=== PATIENT | female | born 1950 | race Caucasian/White ===

== ENCOUNTER 2023-01-17 12:24 | Inpatient (IN) | payer MEDICARE, SELFPAY ==
[2023-01-17] VITALS (8 sets, daily range): BP systolic 135–151; BP diastolic 54–76; PULSE 57–70; RESP 12–20; TEMP 36.3–37; O2SAT 93–100; BMI 28.3
--- NOTE | ~2023-01-17 | CT_ITS ---
EXAMINATION: CT facial bones wo con DATE: 01/17/2023 14:22 INDICATION: Facial injury from fall TECHNIQUE: Computed tomography (CT) of the facial bones and maxillofacial region was performed withou t intravenous contrast. Automated exposure control and iterative reconstruction technique were employ ed. Exam dose: 386.04 mGy-cm total exam DLP. COMPARISON: None. FINDINGS: The frontozygomatic sutures are intact. The orbital rims and maynard, zygomatic arches and ma xillary bones are intact. There is prominent mucoperiosteal thickening of the right maxillary sinus. The paranasal sinuses and mastoid air cells are otherwise unremarkable. There is degenerative disc disease of moderate degree at C4-5 and severe degree at C5-6 and C6-7. The re is degenerative change at the apophyseal joints throughout the cervical spine and uncovertebral luc ints of the mid and particularly lower cervical spine. IMPRESSION: No facial fracture Cervical spondylosis Mucoperiosteal thickening of right maxillary sinus Reviewed, dictated and finalized at [facility]. Reviewed, dictated and finalized at location [facility].
--- NOTE | ~2023-01-17 | XR_ITS ---
XR hip RT min 2V DATE: 01/18/2023 20:31 INDICATION: Bipolar hip replacement TECHNIQUE: Postoperative AP and crosstable lateral views of right hip COMPARISON: January 17, 2023 right hip FINDINGS: There is resection of the right femoral head and neck and placement of bipolar hip prosthes is which is normally seated in the right acetabular fossa. IMPRESSION: Right bipolar hip replacement Reviewed, dictated and finalized at location [facility].
--- NOTE | ~2023-01-17 | XR_ITS ---
EXAMINATION: XR chest 1V INDICATION: Pain after fall TECHNIQUE: AP view of the chest is obtained. COMPARISON: 09/18/2016 FINDINGS: The lungs are free of acute opacities. No pleural effusion or pneumothorax. The cardiomedia stinal silhouette is normal. Biopsy markers are noted in the left breast. IMPRESSION: 1. No acute cardiopulmonary abnormality. Reviewed, dictated and finalized at location [facility].
--- NOTE | ~2023-01-17 | XR_ITS ---
EXAMINATION: XR hip RT 2V w AP pelvis INDICATION: Right hip pain after fall. TECHNIQUE: AP view the pelvis and two views of the right hip are obtained. COMPARISON: None available FINDINGS: There is an acute, traumatic, closed, subcapital fracture of the right femoral neck. No add itional fracture is identified. The soft tissues are unremarkable. IMPRESSION: 1. Acute subcapital right femoral neck fracture. Reviewed, dictated and finalized at location [facility].
--- NOTE | ~2023-01-17 | CT_ITS ---
EXAMINATION: CT brain wo con DATE: 01/17/2023 14:21 INDICATION: Head and facial injuries TECHNIQUE: Computed tomography (CT) of the head was performed without intravenous contrast. The mA wa s adjusted according to patient size. Iterative reconstruction technique was employed. Exam dose: 68 1.00 mGy-cm total exam DLP. COMPARISON: None FINDINGS: Vertebral, basilar and carotid siphon internal carotid artery calcifications are noted. The re is nonspecific diminished attenuation of the cerebral white matter, likely due to chronic small ve ssel ischemic changes. There is a small focal area of encephalomalacia in the medial aspect of the right frontal lobe likely due to small old infarct. No intracranial mass lesion or hemorrhage, midline shift or mass effect is detected. No subdural or e pidural hematoma is detected. There is moderately prominent mucoperiosteal thickening of the right maxillary sinus. The paranasal s inuses and mastoid air cells are otherwise unremarkable. No skull fracture or bone destruction is detected. 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 Reviewed, dictated and finalized at location [facility]. 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
[2023-01-17] MEDS: fentaNYL CITRATE INJ (*CRX) 100 MCG/2 ML VIAL 50 MCG IV PUSH (12:58)
[2023-01-17 13:25] LABS: Basophils Percent Auto 0.2 % (0.2-1.2); Eosinophils Absolute Auto 0.1 K/mm3 (0-0.3); Eosinophils Percent Auto 0.4 % (0-4.4); Hematocrit 41.5 % (37.0-47.0); Hemoglobin 13.1 g/dL (12.0-15.0); Immature Granulocyte Absolute 0.12 K/mm3 (0.00-0.031); Immature Granulocyte Percent A 0.9 % (0-0.5); Lymphocytes Absolute Auto 1.53 K/mm3 (0.9-3.2); Lymphocytes Percent Auto 11.8 % (18.3-44.2); Mean Corpuscular HGB Conc 31.6 g/dl (32-36); Mean Corpuscular Hemoglobin 30.9 pg (26-34); Mean Corpuscular Volume 97.9 fl (80-100); Mean Platelet Volume 9.9 fl (7.4-10.4); Monocytes Absolute Auto 0.7 K/mm3 (0.1-0.6); Monocytes Percent Auto 5.1 % (2.6-8.5); Neutrophils Absolute Auto 10.6 K/mm3 (1.3-6.7); Neutrophils Percent Auto 81.6 % (45.5-73.1); Platelet Count Result 208 k/mm3 (150-375); Red Blood Count 4.24 M/mm3 (4.2-5.4); Red Cell Distribution Width 13.6 % (11.5-14.5)
[2023-01-17 13:32] LABS: Alanine Aminotransferase 24 U/L (6-35); Albumin Level 4.5 g/dL (3.5-5.1); Alkaline Phosphatase 70 U/L (38-126); Anion Gap 7 mmol/L (8-16); Aspartate Amino Transferase 29 U/L (14-36); Bilirubin,Total 0.7 mg/dL (0.2-1.3); Blood Urea Nitrogen 22 mg/dL (7-17); Calcium 9.1 mg/dL (8.4-10.2); Carbon Dioxide 25 mmol/L (22-30); Chloride 105 mmol/L (98-107); Estimated CRCL calculation 64 ml/min; Estimated Glomerular Filt Rate > 60; Glucose 116 mg/dL (65-110); Potassium 4.2 mmol/L (3.4-5.0); Sodium 137 mmol/L (137-145)
[2023-01-17 13:40] LABS: Partial Thromboplastin Time 23.9 SECONDS (22.3-36.8)
--- NOTE | 2023-01-17 13:57 | ED.GENADULT ---
HPI - General Adult General Chief complaint: Fall Stated complaint: Fall Time Seen by Provider: 01/17/23 12:33 History of Present Illness HPI narrative: 72-year-old female presented to the emergency department for evaluation of right hip pain after having a ground-level fall. Patient states that she slipped in the kitchen, causing her to fall forward and landing on her face and abdomen. Patient denies loss consciousness. Patient states her was able to assist her to sitting but after sitting she realized that she had very significant right hip pain. Patient called EMS for the pain. Upon arrival by EMS patient's right leg was shortened and externally rotated. Related Data Home Medications Medication Instructions Recorded Confirmed amlodipine 2.5 mg tablet 2.5 mg PO DAILY 01/17/23 01/17/23 lovastatin 20 mg tablet 20 mg PO HS 01/17/23 01/17/23 metoprolol tartrate 25 mg tablet 25 mg PO BID 01/17/23 01/17/23 Allergies Allergy/AdvReac Type Severity Reaction Status Date / Time Sulfa (Sulfonamide Allergy Unknown Verified 06/25/18 08:21 Antibiotics) Review of Systems Review of Systems: All systems reviewed & are unremarkable except as noted in HPI and below PMFSH Past Medical History Medical History (Updated 01/17/23 @ 19:02 by Clemente Solis MD) Cancer of left breast Dyslipidemia Hypertension Surgical History Surgical History (Updated 01/17/23 @ 15:24 by Sherly Garcia PA-C) History of lumpectomy of left breast Family History Family History (Updated 01/17/23 @ 17:09 by Jackeline Collins RN) Mother Congestive heart failure (CHF) Hypertension Osteoporosis Anemia Father Arthritis Pacemaker Anemia Sibling Pacemaker Arthritis Social History Social History (Updated 01/17/23 @ 15:25 by Sherly Garcia PA-C) Social History: Surrogate medical decision maker: Code status: Full code. Smoking packs per day: 0.20 Smoking cigarettes per day: 4.0 Years smoked: 8 Smoking pack-years: 1.60 Smoking status: Former smoker Alcohol intake: never Substance use: never Substance use type: does not use Lack of Transportation: No Lack of Food: Never True Current Housing: I Have Housing Concerned About Future Housing: No Difficulty Paying Gas/Electric Bills: No Difficulty Paying for Meds: No Currently Unemployed: No Education: High School Diploma/GED Difficulty w/ Childcare or Family Care: No Spiritual care concerns: No Exam Narrative: APPEARANCE: Well appearing, no pain, no distress, well-nourished. HEAD: normocephalic, atraumatic. EYES: PERRLA/EOMI, conjunctivae clear. NOSE: Normal no drainage NECK: Supple. No adenopathy, no masses. RESPIRATORY: Airway patent, respirations nonlabored. Clear to auscultation bilaterally, no rales, rhonchi, wheezing. CARDIOVASCULAR: Regular rate and rhythm without murmurs rubs or gallops. ABDOMINAL: Soft, nontender, nondistended, normal bowel sounds MUSCULOSKELETAL: Moves all extremities. Right leg is neurovascular intact but is shortened externally rotated. NEURO: Alert. Cranial nerves II through XII intact. SKIN: Warm, dry. Normal Color Course Course Emergency Course: 32-year-old female presenting to the ED for evaluation after having a ground-level fall striking her face and having right hip pain. Head and facial CT were negative for acute abnormality. Hip x-ray showed positive fracture. Patient's pain was improved with IV pain medications including 0.5 mg of Dilaudid. Case was discussed with orthopedics and they will see the patient as consult. Case discussed with hospitalist and patient was accepted for admission. Patient and family were updated on the results of the work-up and imaging and anticipated admission and treatment plan. Vital Signs Vital signs: Vital Signs Temperature 98.2 F 01/17/23 12:20 Pulse Rate 59 L 01/17/23 12:20 Respiratory Rate 15 01/17/23 12:20 Blood Pres
--- NOTE | 2023-01-17 15:20 | PM.IMHP ---
H&P: HPI History of Present Illness Date/Time: 01/17/23 15:20 Chief Complaint: Right hip pain after fall. Narrative: This is a 72-year-old female with hypertension and dyslipidemia who presented to the emergency department for evaluation of right hip pain after fall. Patient provides the following history. On her way to the kitchen she reports that the rubber soles of her shoes got tripped up on the floor, causing her to fall forward. She denies antecedent symptoms prior to the fall and states it was purely mechanical. She did not think that she had any head trauma however her glasses did cause a small abrasion on the right eyebrow which bled for a period of time. With the help of her she was able to get up to the couch and when she sat down she had immediate sharp, shooting pain in the right hip. He called 911 as she was unable to move and radiographs of that right hip revealed an acute subcapital right femoral neck fracture. She is being admitted in this setting for surgical repair tomorrow. At the time my evaluation she rates her pain 7.5/10 pain situated in the anterolateral hip, radiating somewhat down the leg. She denies loss of consciousness in the fall and did not sustain any other injuries. She denies paresthesias, skin color, and temperature changes distal to the fracture site. Review of Systems Review of Systems: Twelve systems were reviewed. She has frequent sinus issues and allergies this time of year. No acute symptoms. No syncope or presyncope. She has not had exertional chest pain or shortness of breath. No orthopnea, paroxysmal nocturnal dyspnea, or lower extremity edema. Appetite has been good. No nausea, vomiting, or diarrhea. No dysuria. No history of venous thromboembolism. Except as documented, all other systems were reviewed and are negative. [facility] Past Medical History Medical History (Updated 01/17/23 @ 20:53 by Sherly Garcia PA-C) Cancer of left breast Status post lumpectomy and chemoradiation. Dyslipidemia Hypertension Hypothyroidism Osteoporosis Surgical History Surgical History History of lumpectomy of left breast Family History Family History (Updated 01/17/23 @ 17:09 by Jackeline Collins RN) Mother Congestive heart failure (CHF) Hypertension Osteoporosis Anemia Father Arthritis Pacemaker Anemia Sibling Pacemaker Arthritis Social History Social History (Updated 01/17/23 @ 20:54 by Sherly Garcia PA-C) Social History: Surrogate medical decision maker: Rito Falcon, spouse. Code status: Full code. Smoking packs per day: 0.20 Smoking cigarettes per day: 4.0 Years smoked: 8 Smoking pack-years: 1.60 Smoking status: Former smoker Alcohol intake: never Substance use: never Substance use type: does not use Lack of Transportation: No Lack of Food: Never True Current Housing: I Have Housing Concerned About Future Housing: No Difficulty Paying Gas/Electric Bills: No Difficulty Paying for Meds: No Currently Unemployed: No Education: High School Diploma/GED Difficulty w/ Childcare or Family Care: No Additional living arrangements comments: Lives with in [place]. Spiritual care concerns: No Meds Home Medications and Allergies Home Medications Medication Instructions Recorded Confirmed Type amlodipine 2.5 mg tablet 2.5 mg PO DAILY 01/17/23 01/17/23 History lovastatin 20 mg tablet 20 mg PO HS 01/17/23 01/17/23 History metoprolol tartrate 25 mg tablet 25 mg PO BID 01/17/23 01/17/23 History Allergies Allergy/AdvReac Type Severity Reaction Status Date / Time Sulfa (Sulfonamide Allergy Unknown Verified 06/25/18 08:21 Antibiotics) Vital Signs Vital Signs - 24 hr 01/17/23 12:20 Temperature 98.2 F Pulse Rate 59 L Respiratory Rate 15 Blood Pressure 148/76 H Pulse Oximetry 97 Oxygen Delivery Room Air Exam Narrative: Gen
[2023-01-17] MEDS: HYDROmorphone HCL INJ (*CRX) 1 MG/ML SYR 0.5 MG IV PUSH ×2 (15:46→21:36)
[2023-01-17 15:55] LABS: Appearance Urine Clear (Clear); Bacteria Urine None Seen /hpf; Bilirubin Urine Negative (Negative); Blood Urine Trace (Negative); Color Urine Yellow (Yellow); Glucose Urine UA Negative (Negative); Ketones Urine Trace mg/dL (Negative); Leukocyte Esterase Ur Negative LEU/UL (Negative); Nitrate Urine Negative (Negative); Non Pathogenic Casts 0-2; Protein Urine Negative (Negative); RBC Urine 0-2 /hpf (0-2); Specific Grav Ur 1.021 (1.001-1.035); Squamous Epithelial Cell Urine None seen /hpf (Few); Urobilinogen Urine 0.2 mg/dL (<2.0); WBC Urine 0-5 /hpf; pH Urine 5.5 (5.0-9.0)
[2023-01-17 15:58] LABS: Add Urine Microscopic? YES
--- NOTE | 2023-01-17 16:54 | ADMGEN ---
This patient, Mirna Falcon, was admitted to [facility] Surg Room 303- on 01/17/23 1620. Patient/family oriented to hospital policies and general routines including ID bracelet, bed and alarms, visiting hours, pain management, procedures, bathroom and other care routines, personal items, smoking policy, room service/diet, and visiting hours. Information on how to activate the Rapid Response Team has been discussed. Patient/Family are encouraged to report perceived risks to care and to ask questions if they do not understand what they are told or what they should do.
--- NOTE | 2023-01-17 20:45 | PC.NURSE ---
Patient having increased pain, anxiety and needing home BP meds restarted. DENISE Dubois notified and awaiting further orders.
[2023-01-17] MEDS: ONDANSETRON INJ 4 MG/2 ML VIAL IV PUSH (21:36)
[2023-01-17] MEDS: LOVASTATIN 20 MG TABLET PO (22:03)
[2023-01-17] MEDS: METOPROLOL TARTRATE 25 MG TABLET PO (22:04)
[2023-01-18] VITALS (11 sets, daily range): BP systolic 120–148; BP diastolic 45–71; PULSE 64–80; RESP 12–20; TEMP 36.3–37.6; O2SAT 88–100
[2023-01-18] MEDS: ONDANSETRON INJ 4 MG/2 ML VIAL IV PUSH ×2 (01:34→06:19)
[2023-01-18] MEDS: HYDROmorphone HCL INJ (*CRX) 1 MG/ML SYR 0.5 MG IV PUSH ×4 (01:34→14:55)
--- NOTE | 2023-01-18 07:29 | PM.CNOR ---
Assessment and Plan Assessment and plan (1) Closed subcapital fracture of neck of right femur: Code(s): S72.011A - Unspecified intracapsular fracture of right femur, initial encounter for closed fracture Status: Acute Plan 72-year-old female with a right subcapital femoral neck fracture. I discussed the injury with the patient and her . Plan on bipolar right hip replacement later today. Risks and potential complications were discussed in detail and questions answered. Thank you for the consultation. History of Present Illness HPI Consult date: 01/18/23 Consult reason: fracture Chief complaint: Right Hip Fracture Narrative: This document created with [id number] technology and is subject to hemming and tacking machine operator irregularities. 72-year-old community ambulator who tripped in her kitchen at home yesterday suffering a displaced right femoral neck fracture. No other injuries with this occurrence. Review of Systems Constitutional: Constitutional: Reports no additional constitutional complaints, Denies excessive sweating and Denies fatigue Eyes: Eyes: Reports no additional eye complaints ENT: Reports system reviewed and no additional complaints, except as documented Cardiovascular: Cardiovascular: Denies chest pain at rest and Denies dyspnea Respiratory: Respiratory: Reports no additional respiratory complaints and Denies dyspnea Gastrointestinal: Gastrointestinal: Reports no additional gastrointestinal complaints Musculoskeletal: Musculoskeletal: Reports as per HPI Integumentary/Breasts: Skin/Breast: Reports system reviewed and no additional complaints, except as docu Comments: History of breast cancer treated six years ago. Currently considered cancer free Neurologic: Reports as per HPI Endocrine: Endocrine: Denies excessive sweating and Denies fatigue Hematologic/Lymphatic: Hematologic/Lymphatic: Denies easy bleeding and Denies easy bruising PMFSH Past Medical History Medical History Cancer of left breast Status post lumpectomy and chemoradiation. Dyslipidemia Hypertension Hypothyroidism Osteoporosis Surgical History Surgical History History of lumpectomy of left breast Family History Family History Mother Congestive heart failure (CHF) Hypertension Osteoporosis Anemia Father Arthritis Pacemaker Anemia Sibling Pacemaker Arthritis Social History Social History Social History: Surrogate medical decision maker: Rito Falcon, spouse. Code status: Full code. Smoking packs per day: 0.20 Smoking cigarettes per day: 4.0 Years smoked: 8 Smoking pack-years: 1.60 Smoking status: Former smoker Alcohol intake: never Substance use: never Substance use type: does not use Lack of Transportation: No Lack of Food: Never True Current Housing: I Have Housing Concerned About Future Housing: No Difficulty Paying Gas/Electric Bills: No Difficulty Paying for Meds: No Currently Unemployed: No Education: High School Diploma/GED Difficulty w/ Childcare or Family Care: No Additional living arrangements comments: Lives with in [place]. Spiritual care concerns: No Meds Home Medications and Allergies Home Medications Medication Instructions Recorded Confirmed Type amlodipine 2.5 mg tablet 2.5 mg PO DAILY 01/17/23 01/17/23 History lovastatin 20 mg tablet 20 mg PO HS 01/17/23 01/17/23 History metoprolol tartrate 25 mg tablet 25 mg PO BID 01/17/23 01/17/23 History Allergies Allergy/AdvReac Type Severity Reaction Status Date / Time Sulfa (Sulfonamide Allergy Unknown Verified 06/25/18 08:21 Antibiotics) Vital Signs Vital Signs - 24 hr 01/17/23 12:20 01/17/23 12:29 01/17/23 12:31 Temperature 98.2 F Pulse
--- NOTE | 2023-01-18 11:47 | PM.IMPN ---
Progress Note: A&P Assessment and Plan (1) Closed subcapital fracture of neck of right femur: Code(s): S72.011A - Unspecified intracapsular fracture of right femur, initial encounter for closed fracture Status: Acute Assessment and Plan: Surgery planned for today (2) Fall from ground level: Code(s): W18.30XA - Fall on same level, unspecified, initial encounter Status: Acute (3) Hypertension: Code(s): I10 - Essential (primary) hypertension Status: Acute (4) Dyslipidemia: Code(s): E78.5 - Hyperlipidemia, unspecified Status: Acute Plan Subjective Date/time seen: 01/18/23 11:47 No new complaints Exam Narrative: General: Well-developed female supine in bed in moderate pain. Weight: 79.6 kg. BMI: 28.3. HEENT: Wearing corrective lenses. There is a subcentimeter, superficial abrasion on the right lateral eyebrow. PERRL, EOMI. Sclera anicteric. Oral mucosa moist. Oropharynx clear. Neck: Supple. No JVD. Respiratory: Lungs are clear to auscultation bilaterally. Cardiovascular: Regular rate and rhythm with S1-S2. Gastrointestinal: Abdomen is soft, nontender, and nondistended with positive bowel sounds. Skin: Warm and dry. No rash or lesions on limited exam. Extremities: No cyanosis, clubbing, or edema. Radial and pedal pulses intact. Musculoskeletal: Right leg is shortened and externally rotated. She is neurovascularly intact distal to the fracture site. Neurological: Alert. Cranial nerves 2-12 are grossly intact. No gross focal deficits to casual conversation. Psychiatric: Pleasant and cooperative with normal mood and affect. Judgment and insight intact. Objective Data Vital Signs Vital Signs: Vital Signs - 24 hr 01/17/23 12:20 01/17/23 12:29 01/17/23 12:31 Temperature 98.2 F Pulse Rate 59 L 59 L Respiratory Rate 15 18 14 Blood Pressure 148/76 H 148/76 H 149/67 H Pulse Oximetry 97 94 93 Oxygen Delivery Room Air 01/17/23 12:46 01/17/23 13:15 01/17/23 15:51 Temperature Pulse Rate 57 L 60 66 Respiratory Rate 20 18 18 Blood Pressure 151/69 H 147/68 H 135/55 L Pulse Oximetry 96 100 100 Oxygen Delivery 01/17/23 16:20 01/17/23 21:23 01/18/23 05:41 Temperature 98.6 F 97.3 F L 97.6 F Pulse Rate 67 70 69 Respiratory Rate 12 16 16 Blood Pressure 135/54 L 137/64 133/59 L Pulse Oximetry 97 94 93 Oxygen Delivery 01/18/23 08:00 Temperature Pulse Rate Respiratory Rate Blood Pressure Pulse Oximetry Oxygen Delivery Room Air Intake/Output Intake/Output: Intake & Output 01/15/23 01/16/23 01/17/23 01/18/23 23:59 23:59 23:59 23:59 Intake Total 480 Output Total 500 Balance 480 -500 Meds/Results Medications: Active Medications Generic Name Dose Route Start Last Admin Trade Name Freq PRN Reason Stop Dose Admin Amlodipine Besylate 2.5 mg 01/18/23 09:00 Amlodipine Besylate 2.5 Mg Tablet PO DAILY ALBERTO Sodium Chloride 38.7 ml/ 0 ml 01/18/23 12:00 Morphine Sulfate 2 mg/ INFILTRATE 01/18/23 12:01 Ropivacaine 200 mg/ ONCE ONE Epinephrine HCl 0.3 mg Hydromorphone HCl 0.5 mg 01/17/23 21:21 01/18/23 09:26 Hydromorphone Hcl Inj (*Crx) 1 Mg/Ml Syr IV PUSH 0.5 mg Q3H PRN Administration Pain Rated 7-10 Lovastatin 20 mg 01/17/23 21:35 01/17/23 22:03 Lovastatin 20 Mg Tablet PO 20 mg HS ALBERTO Administration Metoprolol Tartrate 25 mg 01/17/23 21:35 01/18/23 09:39 Metoprolol Tartrate 25 Mg Tablet PO Not Given BID S
[2023-01-18] MEDS: amLODIPine BESYLATE 2.5 MG TABLET PO (12:43)
[2023-01-18] MEDS: METOPROLOL TARTRATE 25 MG TABLET PO (12:43)
--- NOTE | 2023-01-18 16:48 | WPDHPUPDATE1 ---
History and Physical Update Update Date/Time: 01/18/23 16:48 History and Physical has been reviewed, including an updated exam of the patient. There are NO changes in the patient's condition. Risks, benefits, and alternatives have been discussed and questions answered. Patient agrees to proceed with procedure.
--- NOTE | 2023-01-18 16:49 | WPDANESEPPF ---
Anes - Initial Pre Proc Eval Procedure: Operation Date: 01/18/23 17:30 Proposed Procedures p Right Bipolar Hip Replacement - John Velasquez MD Date/Time: 01/18/23 16:49 Surgeon: Elmo Holman MD Pre Op Diagnosis: Right Hip Fracture Patient Data Age: 72 Gender: F Height: 1.68 m Weight: 79.6 kg Last Vital Signs Temp 36.5 C 01/18/23 14:00 Pulse 65 01/18/23 14:00 Resp 20 01/18/23 14:00 BP 141/61 H 01/18/23 14:00 Pulse Ox 97 01/18/23 14:00 O2 Del Method Room Air 01/18/23 08:00 Allergies Allergy/AdvReac Type Severity Reaction Status Date / Time Sulfa (Sulfonamide Allergy Unknown Verified 06/25/18 08:21 Antibiotics) Home Medications Medication Instructions Recorded Confirmed Type amlodipine 2.5 mg tablet 2.5 mg PO DAILY 01/17/23 01/17/23 History lovastatin 20 mg tablet 20 mg PO HS 01/17/23 01/17/23 History metoprolol tartrate 25 mg tablet 25 mg PO BID 01/17/23 01/17/23 History Patient hx anesthesia problems: none Family hx anesthesia problems: none Results Review: All pre-operative results and documents have been reviewed as part of the pre-operative evaluation. [facility] Past Medical History Medical History (Updated 01/18/23 @ 16:49 by Torres Mena MD) Cancer of left breast Status post lumpectomy and chemoradiation. Dyslipidemia Hypertension Hypothyroidism Osteoporosis Thyroid adenoma Surgical History Surgical History History of lumpectomy of left breast Family History Family History Mother Congestive heart failure (CHF) Hypertension Osteoporosis Anemia Father Arthritis Pacemaker Anemia Sibling Pacemaker Arthritis Social History Social History Social History: Surrogate medical decision maker: Rito Falcon, spouse. Code status: Full code. Smoking packs per day: 0.20 Smoking cigarettes per day: 4.0 Years smoked: 8 Smoking pack-years: 1.60 Smoking status: Former smoker Alcohol intake: never Substance use: never Substance use type: does not use Lack of Transportation: No Lack of Food: Never True Current Housing: I Have Housing Concerned About Future Housing: No Difficulty Paying Gas/Electric Bills: No Difficulty Paying for Meds: No Currently Unemployed: No Education: High School Diploma/GED Difficulty w/ Childcare or Family Care: No Additional living arrangements comments: Lives with in [place]. Spiritual care concerns: No Anes - Eval Final PreProcedure Day of Procedure 01/18/23 16:49 Patient weight: overweight Heart: regular rate and rhythm Lungs: clear to auscultation Airway: Mallampati scale class II Neurological: alert and oriented Last oral intake: >/= 8 hours ASA classification: III Emergent: no Anesthetic plan: proceed Anesthesia type and monitoring: general ETT and standard monitoring Results Review: All pre-operative results and documents have been reviewed as part of the pre-operative evaluation. Informed Consent: The patient's anesthetic plan and its attendant risks and benefits were discussed with the patient/family/POA. Questions were solicited and answers provided to the satisfaction of the patient/family/POA.
[2023-01-18] MEDS: LACTATED RINGERS 1,000 ML 30 ML IV CONT ×2 (17:05→20:12)
[2023-01-18] MEDS: ceFAZolin 2 GM/D5W 50 ML 2 GM/50 ML BAG IVPB (18:01)
--- NOTE | 2023-01-18 19:57 | SUR.OPER ---
EBL:400ml
--- NOTE | 2023-01-18 20:03 | P.OP_ITS ---
Procedure Note - Detailed Date of Procedure 01/18/23 Pre-op Diagnosis Right subcapital femoral neck fracture Post-op Diagnosis Same Procedure Performed right bipolar hemiarthroplasty Surgeon John Velasquez MD Plate Colorer Bi/Gila Anesthesia General Description of Procedure The patient was identified and proper site identified, then taken back to the operating room and transferred to the OR table. After general anesthetic induction and intubation, the patient was positioned in the left lateral decubitus position in the usual manner for a right hip procedure, and secured with padded hip positioner making sure the torso and extremities were properly padded. The right lower extremity was prepped and draped in the usual sterile fashion. A curvilinear incision was made over the greater trochanter and sharp dissection carried down through the subcutaneous tissue to the gluteus fascia and IT band which were divided in line with the incision. The anterior 1/2 of the abductors were sharply dissected off the greater trochanter developing the interval between the abductors and the capsule. The capsule was divided in an inverted-T fashion exposing the fracture site. A neck cut was made about one fingerbreadth above the level of the lesser trochanter. Head fragment was removed and the acetabulum cleared of debris. The acetabulum was sized to 46 mm. The proximal femur was prepared for the size 11 Press-Fit. After a thorough lavage of the wound and femur the collared size 11 Press-Fit stem was inserted fully in about 15? of anteversion following the patient's anatomy. Through trialing it was noted that a Minus three 28 head with 46 cup configuration gave oriental orthodox of leg lengths with excellent stability. The neck of the femoral component was cleaned and dried and the real components in those sizes were attached to the femoral stem. After final thorough lavage of the joint, the hip was again reduced. The capsule and lorri-incisional tissues were infiltrated with 60 milliliters of arthroplasty solution. Surgicel powder was used for additional hemostasis in the wound. The capsule was repaired with #2 Ethibond suture. The abductors were repaired to the greater trochanter with #5 Ethibond suture passed through a bony bridge. The deep fascia And deeper subcu tissue was reapproximated with 0 looped PDS suture. 2-0 strata fix and tissue adhesive were used for the skin, and a sterile dressing was applied. Procedure was well tolerated and there were no known intraoperative complications. Estimated Blood Loss 400 Drains No Packing No Pathology None sent Complications No immediate complications Condition Stable Disposition PACU [facility] Billing Surgery - Charge Forward: Surgery Billing ([id number])
[2023-01-18] MEDS: SODIUM CHLORIDE 0.9% IV 1,000 ML 125 ML IV CONT (23:19)
[2023-01-18] MEDS: FAMOTIDINE 20 MG TABLET PO (23:25)
[2023-01-18] MEDS: ARTIFICIAL TEARS OPHTH SOLN 15 ML BOTTLE 1 DROP EACH EYE (23:36)
[2023-01-19] VITALS (8 sets, daily range): BP systolic 112–160; BP diastolic 53–66; PULSE 66–80; RESP 16–18; TEMP 36.4–37.3; O2SAT 92–100
[2023-01-19] MEDS: METOPROLOL TARTRATE 25 MG TABLET PO ×3 (00:05→17:12)
[2023-01-19] MEDS: ceFAZolin 2 GM/D5W 50 ML 2 GM/50 ML BAG IVPB ×3 (02:40→17:14)
[2023-01-19 05:19] LABS: Basophils Percent Auto 0.3 % (0.2-1.2); Eosinophils Absolute Auto 0.1 K/mm3 (0-0.3); Eosinophils Percent Auto 0.6 % (0-4.4); Hematocrit 35.5 % (37.0-47.0); Hemoglobin 10.5 g/dL (12.0-15.0); Immature Granulocyte Absolute 0.03 K/mm3 (0.00-0.031); Immature Granulocyte Percent A 0.3 % (0-0.5); Lymphocytes Absolute Auto 0.97 K/mm3 (0.9-3.2); Mean Corpuscular HGB Conc 29.6 g/dl (32-36); Mean Corpuscular Hemoglobin 30.8 pg (26-34); Mean Corpuscular Volume 104.1 fl (80-100); Monocytes Absolute Auto 0.9 K/mm3 (0.1-0.6); Monocytes Percent Auto 9.7 % (2.6-8.5); Neutrophils Absolute Auto 7.7 K/mm3 (1.3-6.7); Neutrophils Percent Auto 79.1 % (45.5-73.1); Platelet Count Result 141 k/mm3 (150-375); Red Blood Count 3.41 M/mm3 (4.2-5.4); Red Cell Distribution Width 13.7 % (11.5-14.5); White Blood Count 9.7 K/mm3 (4.5-10.0)
[2023-01-19 05:23] LABS: Anion Gap 3 mmol/L (8-16); Blood Urea Nitrogen 15 mg/dL (7-17); Calcium 7.6 mg/dL (8.4-10.2); Carbon Dioxide 23 mmol/L (22-30); Chloride 104 mmol/L (98-107); Estimated CRCL calculation 74 ml/min; Estimated Glomerular Filt Rate > 60; Glucose 129 mg/dL (65-110); Potassium 4.2 mmol/L (3.4-5.0); Sodium 130 mmol/L (137-145)
[2023-01-19] MEDS: SODIUM CHLORIDE 0.9% IV 1,000 ML 125 ML IV CONT (07:58)
[2023-01-19] MEDS: HYDROcodone/acetaminophen (*CRX) 5-325 MG TABLET 1 TAB PO ×2 (07:59→11:51)
[2023-01-19] MEDS: amLODIPine BESYLATE 2.5 MG TABLET PO (08:05)
[2023-01-19] MEDS: SENNA/DOCUSATE SODIUM TABLET 2 TAB PO (08:05)
[2023-01-19] MEDS: FAMOTIDINE 20 MG TABLET PO ×2 (08:05→19:52)
[2023-01-19] MEDS: RIVAROXABAN 10 MG TABLET PO (08:06)
[2023-01-19] MEDS: polyethylene glycoL 3350 17 GM POWD.PACK PO (08:06)
--- NOTE | 2023-01-19 08:08 | PM.PNORT ---
Progress Note: A&P Assessment and Plan (1) Closed subcapital fracture of neck of right femur: Qualifiers: Encounter type: subsequent encounter Fracture healing: with routine healing Qualified Code(s): S72.011D - Unspecified intracapsular fracture of right femur, subsequent encounter for closed fracture with routine healing Code(s): S72.011A - Unspecified intracapsular fracture of right femur, initial encounter for closed fracture Status: Acute Assessment and Plan: 72-year-old female postop day one right bipolar. Begin therapy. Has just the slightest bit of confusion but otherwise oriented. Likely due to medication. Is anemic postoperatively, monitor. Hopefully will be able to return home at the start of the week but may need placement. We will see how she does with therapy. Following. Time Spent With Patient Time with patient: 15 - 25 minutes Subjective Subjective Date/Time Seen: 01/19/23 08:08 Post Op day: 1 Principal diagnosis: Right bipolar hip replacement for femoral neck fracture Interval history: This document created with [id number] technology and is subject to medical transcription editor irregularities. 72-year-old female postop day one Press-Fit bipolar for right femoral neck fracture. Has pain in the right hip and thigh area, not unexpected. Review of Systems Constitutional: Constitutional: Denies anorexia Eyes: Eyes: Denies irritation and Denies loss of vision ENT: Reports Normal hearing present Cardiovascular: Cardiovascular: Denies chest pain and Denies dyspnea on exertion Respiratory: Respiratory: Denies cough and Denies dyspnea on exertion Gastrointestinal: Gastrointestinal: Denies abdominal pain and Denies bloating Genitourinary: Genitourinary: Denies dysuria Musculoskeletal: Musculoskeletal: Denies arthralgias Integumentary/Breasts: Skin/Breast: Denies skin ulcer Neurologic: Reports Normal hearing present and Denies loss of vision Hematologic/Lymphatic: Hematologic/Lymphatic: Denies easy bleeding Exam Const: General: cooperative, no acute distress ( Has right hip and thigh discomfort) and alert Nutritional Appearance: other Orientation/consciousness: patient oriented x3 Limitations: no limitations HENMT: Head: normal to inspection Chest: Chest palpation & inspection: normal inspection of the chest Resp: Effort & Inspection: normal respiratory effort and able to speak in complete sentences GI: Inspection: other ( nondistended) Neuro: General: patient oriented x3 Cranial nerves: Yes Normal hearing present Cognition (Neuro): normal cognition Speech: normal speech Extrem: General: normal to inspection and other Other: Exam of right hip wound shows that it is dry. Minimal swelling in the right hip and thigh. No bruising. Grossly motor and sensory function intact right lower extremity however exam limited secondary to discomfort. Psych: Appearance: grossly normal Mental Status: mental status grossly normal Radiology Reports: Comments: XR hip RT min 2V DATE: 01/18/2023 20:31 INDICATION: Bipolar hip replacement? TECHNIQUE: Postoperative AP and crosstable lateral views of right hip? COMPARISON: January 17, 2023 right hip? FINDINGS: There is resection of the right femoral head and neck and placement of bipolar hip prosthesis which is normally seated in the right acetabular fossa.? IMPRESSION: Right bipolar hip replacement? Reviewed, dictated and finalized at location A. Objective Data Vital Signs Vital Signs: Vital Signs - 24 hr 01/18/23 12:43 01/18/23 14:00 01/18/23 16:25 Temperature 97.7 F 99.6 F Pulse Rate 80 65 64 Respiratory Rate 20 16 Blood Pressure 141/61 H 148/56 H Pulse Oximetry 97 98 Oxygen Delivery Room Air Oxygen Flow Rate 01/18/23 20:12 01/18/23 20:25 01/18/23 20:40 Temperature 97.9 F
--- NOTE | 2023-01-19 12:06 | PM.IMPN ---
Progress Note: A&P Assessment and Plan (1) Closed subcapital fracture of neck of right femur: Qualifiers: Encounter type: subsequent encounter Fracture healing: with routine healing Qualified Code(s): S72.011D - Unspecified intracapsular fracture of right femur, subsequent encounter for closed fracture with routine healing Code(s): S72.011A - Unspecified intracapsular fracture of right femur, initial encounter for closed fracture Status: Acute Assessment and Plan: Status post surgery, continue PTOT. (2) Fall from ground level: Code(s): W18.30XA - Fall on same level, unspecified, initial encounter Status: Acute (3) Hypertension: Code(s): I10 - Essential (primary) hypertension Status: Acute (4) Dyslipidemia: Code(s): E78.5 - Hyperlipidemia, unspecified Status: Acute Plan Subjective Date/time seen: 01/19/23 12:06 No complaints Exam Narrative: General: Well-developed female supine in bed in moderate pain. Weight: 79.6 kg. BMI: 28.3. HEENT: Wearing corrective lenses. There is a subcentimeter, superficial abrasion on the right lateral eyebrow. PERRL, EOMI. Sclera anicteric. Oral mucosa moist. Oropharynx clear. Neck: Supple. No JVD. Respiratory: Lungs are clear to auscultation bilaterally. Cardiovascular: Regular rate and rhythm with S1-S2. Gastrointestinal: Abdomen is soft, nontender, and nondistended with positive bowel sounds. Skin: Warm and dry. No rash or lesions on limited exam. Extremities: No cyanosis, clubbing, or edema. Radial and pedal pulses intact. Musculoskeletal: Right leg is shortened and externally rotated. She is neurovascularly intact distal to the fracture site. Neurological: Alert. Cranial nerves 2-12 are grossly intact. No gross focal deficits to casual conversation. Psychiatric: Pleasant and cooperative with normal mood and affect. Judgment and insight intact. Objective Data Vital Signs Vital Signs: Vital Signs - 24 hr 01/18/23 12:43 01/18/23 14:00 01/18/23 16:25 Temperature 97.7 F 99.6 F Pulse Rate 80 65 64 Respiratory Rate 20 16 Blood Pressure 141/61 H 148/56 H Pulse Oximetry 97 98 Oxygen Delivery Room Air Oxygen Flow Rate 01/18/23 20:12 01/18/23 20:25 04/07/23 20:40 Temperature 97.9 F Pulse Rate 73 66 66 Respiratory Rate 14 16 12 Blood Pressure 136/71 120/45 L 120/48 L Pulse Oximetry 99 97 92 Oxygen Delivery Simple Face Mask Room Air Room Air Oxygen Flow Rate 8 01/18/23 20:55 01/18/23 21:16 01/18/23 21:46 Temperature 97.3 F L 97.4 F L Pulse Rate 66 71 71 Respiratory Rate 12 16 18 Blood Pressure 129/58 L 125/62 135/60 Pulse Oximetry 93 92 88 L Oxygen Delivery Room Air Oxygen Flow Rate 01/18/23 22:46 01/19/23 00:05 01/19/23 02:46 Temperature 97.7 F 97.5 F L Pulse Rate 71 71 75 Respiratory Rate 16 16 Blood Pressure 130/61 160/66 H Pulse Oximetry 100 99 Oxygen Delivery Oxygen Flow Rate 01/18/23 21:30 01/19/23 06:31 01/19/23 08:05 Temperature 97.5 F L Pulse Rate 75 75 Respiratory Rate 18 Blood Pressure 148/58 H Pulse Oximetry 98 Oxygen Delivery Room Air Oxygen Flow Rate Intake/Output Intake/Output: Intake & Output 01/16/23 01/17/23 01/18/23 01/19/23 23:59 23:59 23:59 23:59 Intake Total 430 291 6114 Output Total 850 775 Balance 480 -767 445 Meds/Results Medications: Active Medications Generic Name Dose Route Start Last Admin Trade Name Freq PRN Reason Stop Dose Adm
[2023-01-19] MEDS: ACETAMINOPHEN 325 MG TABLET 650 MG PO (17:11)
[2023-01-19 18:03] LABS: Anion Gap 6 mmol/L (8-16); Blood Urea Nitrogen 17 mg/dL (7-17); Carbon Dioxide 27 mmol/L (22-30); Chloride 98 mmol/L (98-107); Estimated CRCL calculation 74 ml/min; Estimated Glomerular Filt Rate > 60; Glucose 147 mg/dL (65-110); Sodium 131 mmol/L (137-145)
[2023-01-19] MEDS: LOVASTATIN 20 MG TABLET PO (19:52)
[2023-01-19 20:11] LABS: Creatinine Urine 52.6 mg/dL
[2023-01-19 20:14] LABS: Sodium Urine Random 8 meq/L
[2023-01-20 01:38] LABS: Anion Gap 4 mmol/L (8-16); Blood Urea Nitrogen 16 mg/dL (7-17); Calcium 7.9 mg/dL (8.4-10.2); Carbon Dioxide 28 mmol/L (22-30); Chloride 101 mmol/L (98-107); Estimated CRCL calculation 74 ml/min; Estimated Glomerular Filt Rate > 60; Glucose 129 mg/dL (65-110); Potassium 3.7 mmol/L (3.4-5.0); Sodium 133 mmol/L (137-145)
[2023-01-20] MEDS: ACETAMINOPHEN 325 MG TABLET 650 MG PO ×4 (04:24→23:02)
[2023-01-20 06:00] VITALS: BP 145/54; PULSE 85; RESP 16; TEMP 37.1; O2SAT 91
--- NOTE | 2023-01-20 07:24 | PM.PNORT ---
Progress Note: A&P Assessment and Plan (1) Closed subcapital fracture of neck of right femur: Qualifiers: Encounter type: subsequent encounter Fracture healing: with routine healing Qualified Code(s): S72.011D - Unspecified intracapsular fracture of right femur, subsequent encounter for closed fracture with routine healing Code(s): S72.011A - Unspecified intracapsular fracture of right femur, initial encounter for closed fracture Status: Acute Plan Continue with hip replacement rehab. Agree with holding narcotics. Will schedule Tylenol. May not be ready to go home tomorrow. Had discussed with patient and her preop the possibility of rehab. Following. Time Spent With Patient Time with patient: 15 - 25 minutes Subjective Subjective Date/Time Seen: 01/20/23 07:24 Post Op day: 2 Principal diagnosis: Status post right bipolar hemiarthroplasty Interval history: This document created with [id number] technology and is subject to solderer dipper irregularities. 72-year-old female postop day two right hip bipolar hemiarthroplasty for displaced femoral neck fracture. Is experiencing confusion but seems to be reoriented easily this morning. Noted that narcotics were held yesterday. Exam Const: General: cooperative, no acute distress and alert Nutritional Appearance: other Orientation/consciousness: Other orientation findings (Gently confused but easily reoriented this morning. Aware of where she is.) Limitations: no limitations HENMT: Head: normal to inspection Chest: Chest palpation & inspection: normal inspection of the chest Resp: Effort & Inspection: normal respiratory effort and able to speak in complete sentences GI: Inspection: other (Nondistended) Neuro: Cranial nerves: Yes Normal hearing present Speech: normal speech Extrem: General: normal to inspection and other Other: Exam of right hip area shows dry dressing. Minimal swelling in the right hip and thigh. No bruising. Neurovascular status grossly intact right lower extremity but exam still limited somewhat secondary to discomfort. Psych: Appearance: grossly normal Mental Status: mental status grossly abnormal (Mild confusion this morning) Objective Data Vital Signs Vital Signs: Vital Signs - 24 hr 01/19/23 08:05 01/19/23 12:03 01/19/23 14:46 Temperature 99.1 F Pulse Rate 75 66 79 Respiratory Rate 18 Blood Pressure 137/58 L Pulse Oximetry 92 92 Oxygen Delivery Room Air 01/19/23 17:12 01/19/23 20:00 01/19/23 21:43 Temperature 97.9 F Pulse Rate 80 76 Respiratory Rate 18 Blood Pressure 112/53 L Pulse Oximetry 100 Oxygen Delivery Room Air 01/20/23 06:00 Temperature 98.7 F Pulse Rate 85 Respiratory Rate 16 Blood Pressure 145/54 H Pulse Oximetry 91 Oxygen Delivery Intake/Output Intake/Output: Intake & Output 01/17/23 01/18/23 01/19/23 01/20/23 23:59 23:59 23:59 23:59 Intake Total 480 / 480 200 / 200 2280 / 2280 550 / 550 Output Total 850 / 850 1875 / 1875 500 / 500 Balance 480 / 480 -650 / -650 405 / 405 50 / 50 Meds/Results Medications: Active Medications Generic Name Dose Route Start Last Admin Trade Name Freq PRN Reason Stop Dose Admin Acetaminophen 650 mg 01/18/23 21:01 01/20/23 04:24 Acetaminophen 325 Mg Tablet PO 650 mg Q6H PRN Administration Mild Pain (1-3) or Fever Hydrocodone Bitart/Acetaminophen 1 tab 01/18/23 21:01 01/19/23 11:51 Hydrocodone/Acetaminophen (*Crx) 5-325 Mg Tablet PO 1 tab Q3H PRN Administration Pain Rated 4-6 Hydrocodone Bitart/Acetaminophen 2 tab 01/18/23 21:01 Hydrocodone/Acetaminophen (*Crx) 5-325 Mg Tablet PO Q6H PRN Pain Rated 7-10 Amlodipine Besylate 2.5 mg 01/18/23 09:00 01/19/23 08:05 Amlodipine Besylate 2.5 Mg Tablet PO 2.5 mg DAILY ALBERTO Administration Artificial Tears 1 drop 01/18/23 22:16 01/18/23 23:36 Artificial Tears Ophth Soln 15 Ml Bottle EACH EYE
[2023-01-20 08:00] VITALS: PULSE 85; RESP 16; O2SAT 91
[2023-01-20 08:31] VITALS: PULSE 88
[2023-01-20] MEDS: FAMOTIDINE 20 MG TABLET PO ×2 (08:31→20:44)
[2023-01-20] MEDS: RIVAROXABAN 10 MG TABLET PO (08:31)
[2023-01-20] MEDS: METOPROLOL TARTRATE 25 MG TABLET PO ×2 (08:31→17:34)
[2023-01-20] MEDS: amLODIPine BESYLATE 2.5 MG TABLET PO (08:31)
[2023-01-20] MEDS: polyethylene glycoL 3350 17 GM POWD.PACK PO (08:32)
[2023-01-20] MEDS: SENNA/DOCUSATE SODIUM TABLET 2 TAB PO ×2 (08:32→17:33)
--- NOTE | 2023-01-20 11:31 | PM.IMPN ---
Progress Note: A&P Assessment and Plan (1) Closed subcapital fracture of neck of right femur: Qualifiers: Encounter type: subsequent encounter Fracture healing: with routine healing Qualified Code(s): S72.011D - Unspecified intracapsular fracture of right femur, subsequent encounter for closed fracture with routine healing Code(s): S72.011A - Unspecified intracapsular fracture of right femur, initial encounter for closed fracture Status: Acute Assessment and Plan: Status post surgery, continue PTOT. (2) Fall from ground level: Code(s): W18.30XA - Fall on same level, unspecified, initial encounter Status: Acute (3) Hypertension: Code(s): I10 - Essential (primary) hypertension Status: Acute (4) Dyslipidemia: Code(s): E78.5 - Hyperlipidemia, unspecified Status: Acute Plan Subjective Date/time seen: 01/20/23 11:31 No complaints Exam Narrative: General: Well-developed female supine in bed in moderate pain. Weight: 79.6 kg. BMI: 28.3. HEENT: Wearing corrective lenses. There is a subcentimeter, superficial abrasion on the right lateral eyebrow. PERRL, EOMI. Sclera anicteric. Oral mucosa moist. Oropharynx clear. Neck: Supple. No JVD. Respiratory: Lungs are clear to auscultation bilaterally. Cardiovascular: Regular rate and rhythm with S1-S2. Gastrointestinal: Abdomen is soft, nontender, and nondistended with positive bowel sounds. Skin: Warm and dry. No rash or lesions on limited exam. Extremities: No cyanosis, clubbing, or edema. Radial and pedal pulses intact. Musculoskeletal: Right leg is shortened and externally rotated. She is neurovascularly intact distal to the fracture site. Neurological: Alert. Cranial nerves 2-12 are grossly intact. No gross focal deficits to casual conversation. Psychiatric: Pleasant and cooperative with normal mood and affect. Judgment and insight intact. Objective Data Vital Signs Vital Signs: Vital Signs - 24 hr 01/19/23 12:03 01/19/23 14:46 01/19/23 17:12 Temperature 99.1 F Pulse Rate 66 79 80 Respiratory Rate 18 Blood Pressure 137/58 L Pulse Oximetry 92 92 Oxygen Delivery Room Air 01/19/23 20:00 01/19/23 21:43 01/20/23 06:00 Temperature 97.9 F 98.7 F Pulse Rate 76 85 Respiratory Rate 18 16 Blood Pressure 112/53 L 145/54 H Pulse Oximetry 100 91 Oxygen Delivery Room Air 01/20/23 08:00 01/20/23 08:31 Temperature Pulse Rate 85 88 Respiratory Rate 16 Blood Pressure Pulse Oximetry 91 Oxygen Delivery Room Air Intake/Output Intake/Output: Intake & Output 01/17/23 01/18/23 01/19/23 01/20/23 23:59 23:59 23:59 23:59 Intake Total 979 259 2770 1030 Output Total 850 1875 500 Balance 480 -650 405 530 Meds/Results Medications: Active Medications Generic Name Dose Route Start Last Admin Trade Name Freq PRN Reason Stop Dose Admin Acetaminophen 650 mg 01/18/23 21:01 01/20/23 11:21 Acetaminophen 325 Mg Tablet PO 650 mg Q6H PRN Administration Mild Pain (1-3) or Fever Hydrocodone Bitart/Acetaminophen 1 tab 01/18/23 21:01 01/19/23 11:51 Hydrocodone/Acetaminophen (*Crx) 5-325 Mg Tablet PO 1 tab Q3H PRN Administration Pain Rated 4-6 Hydrocodone Bitart/Acetaminophen 2 tab 01/18/23 21:01 Hydrocodone/Acetaminophen (*Crx) 5-325 Mg Tablet PO Q6H PRN Pain Rated 7-10 Amlodipine Besylate 2.5 mg 01/18/23 09:00 01/20/23 08:31 Amlodipine Besylate 2.5 Mg Tablet PO 2.5 mg D
[2023-01-20 14:00] VITALS: BP 140/60; PULSE 82; RESP 16; TEMP 37; O2SAT 92
[2023-01-20 17:34] VITALS: PULSE 88
[2023-01-20] MEDS: LOVASTATIN 20 MG TABLET PO (20:44)
[2023-01-20 22:00] VITALS: BP 125/50; PULSE 79; RESP 18; TEMP 37.2; O2SAT 97
[2023-01-21 05:35] VITALS: BP 135/49; PULSE 77; RESP 20; TEMP 37.1; O2SAT 96
[2023-01-21 06:24] LABS: Anion Gap 0 mmol/L (8-16); Blood Urea Nitrogen 14 mg/dL (7-17); Calcium 7.9 mg/dL (8.4-10.2); Carbon Dioxide 29 mmol/L (22-30); Chloride 105 mmol/L (98-107); Estimated CRCL calculation 88 ml/min; Estimated Glomerular Filt Rate > 60; Glucose 110 mg/dL (65-110); Potassium 3.7 mmol/L (3.4-5.0); Sodium 134 mmol/L (137-145)
[2023-01-21] MEDS: ACETAMINOPHEN 325 MG TABLET 650 MG PO ×2 (07:03→14:24)
[2023-01-21 08:00] VITALS: PULSE 88; RESP 20; O2SAT 96
[2023-01-21 08:05] VITALS: PULSE 88
[2023-01-21] MEDS: RIVAROXABAN 10 MG TABLET PO (08:05)
[2023-01-21] MEDS: SENNA/DOCUSATE SODIUM TABLET 2 TAB PO ×2 (08:05→17:16)
[2023-01-21] MEDS: METOPROLOL TARTRATE 25 MG TABLET PO ×2 (08:05→17:16)
[2023-01-21] MEDS: amLODIPine BESYLATE 2.5 MG TABLET PO (08:05)
[2023-01-21] MEDS: FAMOTIDINE 20 MG TABLET PO ×2 (08:05→20:43)
--- NOTE | 2023-01-21 08:27 | PM.PNORT ---
Progress Note: A&P Assessment and Plan (1) Closed subcapital fracture of neck of right femur: Qualifiers: Encounter type: subsequent encounter Fracture healing: with routine healing Qualified Code(s): S72.011D - Unspecified intracapsular fracture of right femur, subsequent encounter for closed fracture with routine healing Code(s): S72.011A - Unspecified intracapsular fracture of right femur, initial encounter for closed fracture Status: Acute Plan 72-year-old female postop day 3 after right bipolar hemiarthroplasty. Overall doing as expected this morning. Continue to mobilize with PT/OT. She would prefer to go to a rehab facility and I believe this is reasonable. Xarelto for 2 weeks for DVT prophylaxis, followed by daily 325 mg aspirin for 4 weeks. Arthritis Strength Tylenol q6h for pain. Follow-up in 2 weeks at our office for wound check. Time Spent With Patient Time with patient: 15 - 25 minutes Subjective Subjective Date/Time Seen: 01/21/23 08:27 Post Op day: 3 Principal diagnosis: Status post right bipolar hemiarthroplasty Interval history: 72-year-old female postop day 3 right hip bipolar hemiarthroplasty. She is not having any confusion this morning and feels that her confusion was due to the narcotic pain medication. She reports that other family members have experienced the same issues. She is still having a bit of discomfort with mobility of the right hip and would like to go to a rehab facility. Review of Systems Review of Systems: All systems reviewed & are unremarkable except as noted in HPI and below Constitutional: Constitutional: Reports as per HPI and Reports no additional constitutional complaints Musculoskeletal: Musculoskeletal: Reports no additional musculoskeletal complaints and Reports as per HPI Exam Const: General: comfortable and no acute distress Resp: Effort & Inspection: normal respiratory effort GI: Inspection: non-distended Skin: General skin exam: ecchymosis (Right hip) and no erythema Neuro: Sensory Exam: normal sensation Extrem: Other: Exam of the right hip demonstrates a clean and dry surgical dressing. Range of motion of the right hip is mildly irritable. She is able to plantar flex and dorsiflex the right foot without difficulty. Calf negative. Neurovascular status right lower extremity intact. Psych: Mental Status: mental status grossly normal Objective Data Vital Signs Vital Signs: Vital Signs - 24 hr 01/20/23 08:31 01/20/23 14:00 01/20/23 17:34 Temperature 98.6 F Pulse Rate 88 82 88 Respiratory Rate 16 Blood Pressure 140/60 Pulse Oximetry 92 Oxygen Delivery 01/20/23 20:00 01/20/23 22:00 01/21/23 05:35 Temperature 98.9 F 98.8 F Pulse Rate 79 77 Respiratory Rate 18 20 Blood Pressure 125/50 L 135/49 L Pulse Oximetry 97 96 Oxygen Delivery Room Air 01/21/23 08:05 Temperature Pulse Rate 88 Respiratory Rate Blood Pressure Pulse Oximetry Oxygen Delivery Intake/Output Intake/Output: Intake & Output 01/18/23 01/19/23 01/20/23 01/21/23 23:59 23:59 23:59 23:59 Intake Total 200 2280 1670 500 Output Total 850 1875 1550 1000 Balance -650 405 120 -500 Meds/Results Medications: Active Medications Generic Name Dose Route Start Last Admin Trade Name Freq PRN Reason Stop Dose Admin Acetaminophen 650 mg 01/18/23 21:01 01/21/23 07:03 Acetaminophen 325 Mg Tablet PO 650 mg Q6H PRN Administration Mild Pain (1-3) or Fever Hydrocodone Bitart/Acetaminophen 1 tab 01/18/23 21:01 01/19/23 11:51 Hydrocodone/Acetaminophen (*Crx) 5-325 Mg Tablet PO 1 tab Q3H PRN Administration Pain Rated 4-6 Hydrocodone Bitart/Acetaminophen 2 tab 01/18/23 21:01 Hydrocodone/Acetaminophen (*Crx) 5-325 Mg Tablet PO Q6H PRN Pain Rated 7-10 Amlodipine Besylate 2.5 mg 01/18/23 09:00 01/21/23 08:05 Amlodipine Besylate 2.5 Mg Tablet PO 2.5 mg DAILY ALBERTO Adminis
--- NOTE | 2023-01-21 09:15 | PCPTNOTE ---
Attempted to see patient for PT, however patient was eating breakfast.
--- NOTE | 2023-01-21 11:26 | PM.IMPN ---
Progress Note: A&P Assessment and Plan (1) Closed subcapital fracture of neck of right femur: Qualifiers: Encounter type: subsequent encounter Fracture healing: with routine healing Qualified Code(s): S72.011D - Unspecified intracapsular fracture of right femur, subsequent encounter for closed fracture with routine healing Code(s): S72.011A - Unspecified intracapsular fracture of right femur, initial encounter for closed fracture Status: Acute Assessment and Plan: Status post surgery, continue PTOT. (2) Fall from ground level: Code(s): W18.30XA - Fall on same level, unspecified, initial encounter Status: Acute (3) Hypertension: Code(s): I10 - Essential (primary) hypertension Status: Acute (4) Dyslipidemia: Code(s): E78.5 - Hyperlipidemia, unspecified Status: Acute Plan Subjective Date/time seen: 01/21/23 11:26 No complaints Exam Narrative: General: Well-developed female supine in bed in moderate pain. Weight: 79.6 kg. BMI: 28.3. HEENT: Wearing corrective lenses. There is a subcentimeter, superficial abrasion on the right lateral eyebrow. PERRL, EOMI. Sclera anicteric. Oral mucosa moist. Oropharynx clear. Neck: Supple. No JVD. Respiratory: Lungs are clear to auscultation bilaterally. Cardiovascular: Regular rate and rhythm with S1-S2. Gastrointestinal: Abdomen is soft, nontender, and nondistended with positive bowel sounds. Skin: Warm and dry. No rash or lesions on limited exam. Extremities: No cyanosis, clubbing, or edema. Radial and pedal pulses intact. Musculoskeletal: Right leg is shortened and externally rotated. She is neurovascularly intact distal to the fracture site. Neurological: Alert. Cranial nerves 2-12 are grossly intact. No gross focal deficits to casual conversation. Psychiatric: Pleasant and cooperative with normal mood and affect. Judgment and insight intact. Objective Data Vital Signs Vital Signs: Vital Signs - 24 hr 01/20/23 14:00 01/20/23 17:34 01/20/23 20:00 Temperature 98.6 F Pulse Rate 82 88 Respiratory Rate 16 Blood Pressure 140/60 Pulse Oximetry 92 Oxygen Delivery Room Air 01/20/23 22:00 01/21/23 05:35 01/21/23 08:05 Temperature 98.9 F 98.8 F Pulse Rate 79 77 88 Respiratory Rate 18 20 Blood Pressure 125/50 L 135/49 L Pulse Oximetry 97 96 Oxygen Delivery Intake/Output Intake/Output: Intake & Output 01/18/23 01/19/23 01/20/23 01/21/23 23:59 23:59 23:59 23:59 Intake Total 200 2280 1670 854 Output Total 850 1875 1550 1000 Balance -650 405 120 -146 Meds/Results Medications: Active Medications Generic Name Dose Route Start Last Admin Trade Name Freq PRN Reason Stop Dose Admin Acetaminophen 650 mg 01/18/23 21:01 01/21/23 07:03 Acetaminophen 325 Mg Tablet PO 650 mg Q6H PRN Administration Mild Pain (1-3) or Fever Hydrocodone Bitart/Acetaminophen 1 tab 01/18/23 21:01 01/19/23 11:51 Hydrocodone/Acetaminophen (*Crx) 5-325 Mg Tablet PO 1 tab Q3H PRN Administration Pain Rated 4-6 Hydrocodone Bitart/Acetaminophen 2 tab 01/18/23 21:01 Hydrocodone/Acetaminophen (*Crx) 5-325 Mg Tablet PO Q6H PRN Pain Rated 7-10 Amlodipine Besylate 2.5 mg 01/18/23 09:00 01/21/23 08:05 Amlodipine Besylate 2.5 Mg Tablet PO 2.5 mg DAILY ALBERTO Administration Artificial Tears 1 drop 01/18/23 22:16 01/18/23 23:36 Artificial Tears Ophth Soln 15 Ml Bottle EACH EYE 1 drop QID PRN Adm
[2023-01-21 14:00] VITALS: BP 125/50; PULSE 88; RESP 18; TEMP 36.7; O2SAT 100
[2023-01-21 17:16] VITALS: PULSE 88
[2023-01-21] MEDS: LOVASTATIN 20 MG TABLET PO (20:44)
[2023-01-21 22:00] VITALS: BP 135/57; PULSE 79; RESP 14; TEMP 36.5; O2SAT 98
[2023-01-22] MEDS: ACETAMINOPHEN 325 MG TABLET 650 MG PO ×2 (04:32→11:31)
[2023-01-22 06:00] VITALS: BP 134/56; PULSE 86; RESP 18; TEMP 36; O2SAT 91
[2023-01-22] MEDS: METOPROLOL TARTRATE 25 MG TABLET PO ×2 (08:07→17:45)
[2023-01-22] MEDS: amLODIPine BESYLATE 2.5 MG TABLET PO (08:07)
[2023-01-22] MEDS: FAMOTIDINE 20 MG TABLET PO ×2 (08:07→20:41)
[2023-01-22] MEDS: RIVAROXABAN 10 MG TABLET PO (08:07)
--- NOTE | 2023-01-22 10:44 | PM.IMPN ---
Progress Note: A&P Assessment and Plan (1) Closed subcapital fracture of neck of right femur: Qualifiers: Encounter type: subsequent encounter Fracture healing: with routine healing Qualified Code(s): S72.011D - Unspecified intracapsular fracture of right femur, subsequent encounter for closed fracture with routine healing Code(s): S72.011A - Unspecified intracapsular fracture of right femur, initial encounter for closed fracture Status: Acute Assessment and Plan: Status post surgery, continue PTOT. Awaiting insurance auth (2) Fall from ground level: Code(s): W18.30XA - Fall on same level, unspecified, initial encounter Status: Acute (3) Hypertension: Code(s): I10 - Essential (primary) hypertension Status: Acute (4) Dyslipidemia: Code(s): E78.5 - Hyperlipidemia, unspecified Status: Acute Plan Subjective Date/time seen: 01/22/23 10:44 No new complaints Exam Narrative: General: Well-developed female supine in bed in moderate pain. Weight: 79.6 kg. BMI: 28.3. HEENT: Wearing corrective lenses. There is a subcentimeter, superficial abrasion on the right lateral eyebrow. PERRL, EOMI. Sclera anicteric. Oral mucosa moist. Oropharynx clear. Neck: Supple. No JVD. Respiratory: Lungs are clear to auscultation bilaterally. Cardiovascular: Regular rate and rhythm with S1-S2. Gastrointestinal: Abdomen is soft, nontender, and nondistended with positive bowel sounds. Skin: Warm and dry. No rash or lesions on limited exam. Extremities: No cyanosis, clubbing, or edema. Radial and pedal pulses intact. Musculoskeletal: Right leg is shortened and externally rotated. She is neurovascularly intact distal to the fracture site. Neurological: Alert. Cranial nerves 2-12 are grossly intact. No gross focal deficits to casual conversation. Psychiatric: Pleasant and cooperative with normal mood and affect. Judgment and insight intact. Objective Data Vital Signs Vital Signs: Vital Signs - 24 hr 01/21/23 14:00 01/21/23 17:16 01/21/23 20:00 Temperature 98.0 F Pulse Rate 88 88 Respiratory Rate 18 Blood Pressure 125/50 L Pulse Oximetry 100 Oxygen Delivery Room Air 01/21/23 22:00 01/22/23 06:00 Temperature 97.7 F 96.8 F L Pulse Rate 79 86 Respiratory Rate 14 18 Blood Pressure 135/57 L 134/56 L Pulse Oximetry 98 91 Oxygen Delivery Intake/Output Intake/Output: Intake & Output 01/19/23 01/20/23 01/21/23 01/22/23 23:59 23:59 23:59 23:59 Intake Total 2280 1670 1484 570 Output Total 1875 1550 1300 Balance 405 120 184 570 Meds/Results Medications: Active Medications Generic Name Dose Route Start Last Admin Trade Name Freq PRN Reason Stop Dose Admin Acetaminophen 650 mg 01/18/23 21:01 01/22/23 04:32 Acetaminophen 325 Mg Tablet PO 650 mg Q6H PRN Administration Mild Pain (1-3) or Fever Hydrocodone Bitart/Acetaminophen 1 tab 01/18/23 21:01 01/19/23 11:51 Hydrocodone/Acetaminophen (*Crx) 5-325 Mg Tablet PO 1 tab Q3H PRN Administration Pain Rated 4-6 Hydrocodone Bitart/Acetaminophen 2 tab 01/18/23 21:01 Hydrocodone/Acetaminophen (*Crx) 5-325 Mg Tablet PO Q6H PRN Pain Rated 7-10 Amlodipine Besylate 2.5 mg 01/18/23 09:00 01/22/23 08:07 Amlodipine Besylate 2.5 Mg Tablet PO 2.5 mg DAILY ALBERTO Administration Artificial Tears 1 drop 01/18/23 22:16 01/18/23 23:36 Artificial Tears Ophth Soln 15 Ml Bottle EACH EYE 1 drop QID PRN
[2023-01-22 14:00] VITALS: BP 118/53; PULSE 75; RESP 18; TEMP 36.8; O2SAT 96
[2023-01-22] MEDS: LOVASTATIN 20 MG TABLET PO (20:41)
[2023-01-22 21:38] VITALS: BP 139/54; PULSE 78; RESP 23; TEMP 36.6; O2SAT 96
[2023-01-23 06:00] VITALS: BP 150/67; PULSE 83; RESP 14; TEMP 36.3; O2SAT 95
[2023-01-23 07:56] VITALS: BP 157/73; PULSE 83; O2SAT 96
[2023-01-23] MEDS: ACETAMINOPHEN 325 MG TABLET 650 MG PO (07:58)
[2023-01-23] MEDS: amLODIPine BESYLATE 2.5 MG TABLET PO (07:58)
[2023-01-23] MEDS: FAMOTIDINE 20 MG TABLET PO (07:58)
[2023-01-23 07:59] VITALS: PULSE 83
[2023-01-23] MEDS: METOPROLOL TARTRATE 25 MG TABLET PO (07:59)
[2023-01-23 08:41] LABS: Hematocrit 30.1 % (37.0-47.0); Hemoglobin 9.5 g/dL (12.0-15.0); Mean Corpuscular HGB Conc 31.6 g/dl (32-36); Mean Corpuscular Volume 98.4 fl (80-100); Mean Platelet Volume 9.4 fl (7.4-10.4); Platelet Count Result 251 k/mm3 (150-375); Red Blood Count 3.06 M/mm3 (4.2-5.4); Red Cell Distribution Width 14.2 % (11.5-14.5); White Blood Count 6.4 K/mm3 (4.5-10.0)
[2023-01-23] MEDS: RIVAROXABAN 10 MG TABLET PO (09:13)
--- NOTE | 2023-01-23 12:59 | PM.DS ---
DS: Admitting Diagnosis Discharge Date 01/23/2023 Admitting Diagnosis Right hip pain after fall. DS: Discharge Diagnosis Discharge Diagnosis (1) Closed subcapital fracture of neck of right femur: Qualifiers: Encounter type: subsequent encounter Fracture healing: with routine healing Qualified Code(s): S72.011D - Unspecified intracapsular fracture of right femur, subsequent encounter for closed fracture with routine healing Code(s): S72.011A - Unspecified intracapsular fracture of right femur, initial encounter for closed fracture Status: Acute Assessment and Plan: Status post surgery, continue PTOT. Sp home with home health services (2) Fall from ground level: Code(s): W18.30XA - Fall on same level, unspecified, initial encounter Status: Acute (3) Hypertension: Code(s): I10 - Essential (primary) hypertension Status: Acute Assessment and Plan: Chronic and stable (4) Dyslipidemia: Code(s): E78.5 - Hyperlipidemia, unspecified Status: Acute Assessment and Plan: Chronic and stable Plan DS: Summary Hospital Course Hospital Course: ?72-year-old female with hypertension and dyslipidemia who? presented to the emergency department for evaluation of right hip pain after fall. Patient provides the following history. On her way to the kitchen she reports that the rubber soles of her shoes got tripped up on the floor, causing her to fall forward. She denies antecedent symptoms prior to the fall and states it was purely mechanical. She did not think that she had any head trauma however her glasses did cause a small abrasion on the right eyebrow which bled for a period of time. With the help of her she was able to get up to the couch and when she sat down she had immediate sharp, shooting pain in the right hip. He called 911 as she was unable to move and radiographs of that right hip revealed an acute subcapital right femoral neck fracture.? Sp Right bipolar hemiarthroplasty. Pt received PT/ OT in the hospital and DC with home health services. Time Spent with Patient Time attestation: Total time spent providing and/or coordinating discharge services: Exam Narrative: General: Well-developed female supine in bed Neck: Supple. No JVD. Respiratory: Lungs are clear to auscultation bilaterally. Cardiovascular: Regular rate and rhythm with S1-S2. Gastrointestinal: Abdomen is soft, nontender, and nondistended with positive bowel sounds. Skin: Warm and dry. No rash or lesions on limited exam. Extremities: No cyanosis, clubbing, or edema. Radial and pedal pulses intact. Musculoskeletal: Right leg is shortened and externally rotated. She is neurovascularly intact distal to the fracture site. Neurological: Alert. Cranial nerves 2-12 are grossly intact. No gross focal deficits to casual conversation. Psychiatric: Pleasant and cooperative with normal mood and affect. DS: Data Data Completed and Pending Pending studies at discharge: Pending at discharge 01/18/23 19:00 Surgical [PTH] Routine Labs on day of discharge: Labs from last 24 hours 01/23/23 08:34 WBC 6.4 RBC 3.06 L Hgb 9.5 L Hct 30.1 L MCV 98.4 D MCH 31.0 MCHC 31.6 L RDW 14.2 Plt Count 251 D MPV 9.4 Discharge Plan Discharge Attending physician on discharge: Mariah Cabral Consulting providers: Herman Miller ; John Velasquez ; Kj Luna ; Choco Galvez ; Sherly Garcia ;
[2023-01-23 20:15] LABS: Osmolality, Urine 280 mOsm/kg (50-1200)
== END 2023-01-23 13:24 | disposition home health service (06) | DRG 522 ==
LOC: ANHED 14:04 → ANH3MEDSUR 15:39
PROVIDERS: Chiropractor; Orthopaedic Surgery; Admitting Provider Internal Medicine; Emergency Provider Emergency Medicine; Visit Provider Family Medicine
PROC: 0SRR01A Replacement of Right Hip Joint, Femoral Surface with Metal Synthetic Substitute, Uncemented, Open Approach (ICD-10-PCS; CPT 27125; principal; 2023-01-18 17:30)
DX: S72.011A Unspecified intracapsular fracture of right femur, initial encounter for closed fracture (principal); I10 Essential (primary) hypertension; E03.9 Hypothyroidism, unspecified; E78.5 Hyperlipidemia, unspecified; M81.0 Age-related osteoporosis without current pathological fracture; S00.211A Abrasion of right eyelid and periocular area, initial encounter; W18.30XA Fall on same level, unspecified, initial encounter; Z85.3 Personal history of malignant neoplasm of breast; Z87.891 Personal history of nicotine dependence
CPT/HCPCS: 36415; 70450; 70486; 71045; 73502; 80048; 80053; 81001; 82570; 83930; 83935; 84300; 85025; 85027; 85610; 85730; 88307; 88311; 96374; 96375; 96376; 97110; 97116; 97161; 97165; 97530; 97535; 99285; A9270; C1776; G0378; J0171; J0330; J0690; J1170; J2270; J2370; J2405; J2704; J2710; J2795; J3010; J7030; J7120